=== PATIENT | female | born 1985 | race Asian ===

== ENCOUNTER 2018-07-12 21:37 | Emergency (ER) | payer MEDICAID, OTHER ==
[~2018-07-12] VITALS: Ht 160 cm; Wt 78.9 kg
[2018-07-12 22:31] VITALS: BP 134/76
[2018-07-13] MEDS: KETOROLAC 60 MG/2 ML VIAL IM ONE (03:23)
[2018-07-13 03:42] VITALS: BP 136/67
== END 2018-07-13 03:41 | disposition home or self-care (01) ==
LOC: MED 21:37
DX: M54.5 Low back pain (principal)
CPT/HCPCS: 81002; 81025; 96372; 99283; J1885